=== PATIENT | female | born 1970 | race Caucasian/White ===

== ENCOUNTER 2019-12-17 10:18 | Observation (INO) | payer OTHER, SELFPAY ==
--- NOTE | 2019-12-16 18:39 | PCM.HPOB.BLA ---
- Problem List (1) Menorrhagia with irregular cycle Status: Acute History and Physical Date of Admission: 12/17/19 DATE OF SERVICE: December 11, 2019 ? PROBLEM:?menorrhagia ? DIAGNOSIS:?menorrhagia ? PAST SURGICAL HISTORY:? PAST SURGICAL HISTORY PAST SURGICAL HISTORY Procedure Laterality Date ? ANKLE LEFT OP SURGERY Left 2001 ? 2-3 screws placed ? DELIVERY ONLY N/A ? ? 1995 & 1998 ? PAST SURGICAL HISTORY OF N/A 2004 ? Kidney stone removal and stents placed ? REMOVAL GALLBLADDER N/A 2003 ? TUBAL LIGATION HX Bilateral 1998 ? During 1998 ? PAST MEDICAL HISTORY:? PAST MEDICAL HISTORY PAST MEDICAL HISTORY Diagnosis Date ? Asthma 1999 ? Uterine bleeding, dysfunctional 2016 ? SUBJECTIVE:?Still having heavy vaginal bleeding.?Had bleeding for?20 days in July, this mornth bleeding?for?16 days?straight. Cramping?and pelvic pain.? ? SOCIAL HISTORY:? SOCIAL HISTORY Social History ? Tobacco Use ? Smoking status: Never Smoker ? Smokeless tobacco: Never Used Substance Use Topics ? Alcohol use: No ? ? Frequency: Monthly or less ? ? Drinks per session: 1 or 2 ? Drug use: No ? Current Outpatient Medications on File Prior to Visit Medication Sig ? albuterol sulfate (PROAIR RESPICLICK) 90 mcg/actuation aepb Inhale 1 Inhaler as instructed four times daily as needed. ? beclomethasone (QVAR REDIHALER) 80 mcg/actuation inhaler Inhale 2 Puffs as instructed twice daily. (Patient not taking: Reported on 07/17/2019 ) No current facility-administered medications on file prior to visit.? ALLERGIES ALLERGIES Allergen Reactions ? Sulfa (Sulfonamide * Hives ? True Shimmer Chapst* Swelling Component Latest Ref Rng & Units 07/17/2019 WBC 3.70 - 11.00 k/uL 7.67 RBC 3.90 - 5.20 m/uL 4.89 Hemoglobin 11.5 - 15.5 g/dL 13.5 Hematocrit 36.0 - 46.0 % 43.2 MCV 80.0 - 100.0 fL 88.3 MCH 26.0 - 34.0 pG 27.6 MCHC 30.5 - 36.0 g/dL 31.3 RDW-CV 11.5 - 15.0 % 13.2 Platelet Count 150 - 400 k/uL 243 MPV 9.0 - 12.7 fL 10.0 Absolute nRBC <0.01 k/uL <0.01 TSH 0.270 - 4.200 uU/mL 1.690 EMB benign Colpo for abnormal pap with benign biopsy and negative ECC ? Gynecological Ultrasonography: Uterus: normal, anteverted. Size: Longitudinal 99 mm. Anterio- posterior 47 mm. Transverse 54 mm. Volume: 131.6 ml. Fibroids: Fibroid 1: Size: 19 mm x 17 mm x 19 mm. Type: anterior. Position: mid-uterus. Endometrium: endometrial cavity could not be seen clearly. Endometrium thickness total: 15.3 mm. Right Ovary: subvisualized. Left Ovary: normal. Visible. Morphology: normal morphology. Left Ovary size: 21 mm x 17 mm x 13 mm. Volume: 2.4 ml. Cul de Sac / Pouch of [place]: no free fluid visible. ? OBJECTIVE: ? VITALS:? BP 102/64 ? Pulse 66 ? Resp 18 ? Ht 5' 1 (1.549 m) ? Wt 187 lb 3.2 oz (84.9 kg) ? LMP 07/23/2019 ? BMI 35.37 kg/m? ? HEENT: ?Normocephalic, atraumatic, Mucus membranes moist without lesions. ? NECK: ???Soft and Supple. ?No adenopathy , thyromegaly or bruits. ? SKIN: No lesions. ? CHEST: Clear to auscultation. ?No wheezes or rales. ?Good air exchange. ? HEART: Regular rate and rhythm ?No S3 or S4. ?No gallops or rubs. ? BACK: Nontender with no CVA tenderness. ? ABDOMEN: Soft, non-tender, non-distended, no masses, no hepatosplenomegaly. ? LOWER EXTREMITIES: There was no pitting edema, no palpable cords and no skin changes. ? ? ? ASSESSMENT: ? PLAN:?Discussed options for medical management, as well as a uterine ablation. Patient declines all hormonal options, as well as a uterine ablation. Reviewed that the hysterectomy may not improve her pain, and could worsen the pain from adhesions. Discussed perimenopause. Discussed LAVH, BS, cysto.?The rationale for the proposed surgery was discussed in addition to risks, benefits, and alternatives. ?General pre- and post-operative care was reviewed. ?Questions were answered. ?After discussion, the patient indicated a desire to proceed with the planned surgery. ? Mansi Browne,?DO
[2019-12-17] VITALS (10 sets, daily range): BP systolic 97–118; BP diastolic 55–78; PULSE 51–80; RESP 12–18; TEMP 36.2–37.3; O2SAT 92–100; BMI 36.4; BMI 35.2
--- NOTE | 2019-12-17 | HYST_PTH ---
PATIENT: ABHIJIT NICOLE LOC: [facility] U#:[id number] AGE/SX: 49/F ROOM: [facility]315 RE12/17/[address]: Dr. Mansi Browne DO : 1970 BED: 1 DIS: 12/18/2019 SPEC #: [id number] RECD: 12/17/19 12:59 STATUS: MARIA DEL CARMEN EDU #: [id number] SHERIF: 12/17/19 00:[address]: Mansi Browne DEPT: SURGICAL PATHOLOGY RECD BY: Glynn Wilks Tissues: Uterus, NOS Procedures: Surgery Specimen Level V HEADER OPERATION: ERAS, laparoscopic hysterectomy, vaginal, salpingectomy, cyst PRE-OP DIAGNOSIS: Menorrhagia TISSUE SUBMITTED: Uterus and bilateral fallopian tubes MICROSCOPIC DIAGNOSIS Uterus and bilateral fallopian tubes, vaginal hysterectomy and bilateral salpingectomy: Cervix - mild chronic cystic cervicitis. Endometrium - proliferative endometrium with focal simple endometrial hyperplasia and morular metaplasia. Myometrium - focal superficial adenomyosis. Bilateral fallopian tubes - no pathologic diagnosis. Bilateral paratubal cysts. SJ:rg 12/18/19 COMMENT Case has been reviewed in consultation with Dr. Martines who concurs with the above diagnosis. IDC:AM MICROSCOPIC DESCRIPTION Slides are reviewed. GROSS DESCRIPTION Received in fixative is one container labeled with the patient's name and designated uterus and bilateral fallopian tubes. The specimen consists of a hysterectomy specimen consisting of uterus with cervix, attached right fallopian tube and detached left fallopian tube in two pieces. The uterus with cervix weighs 117 gm and measures 11 x 7 x 4 cm. The serosal surface is rosario, glistening. The ectocervical mucosa is unremarkable. The external os is circular in contour. The endocervical canal measures 4 cm in length and the endocervical mucosa is rosario, glistening without any mass lesion. Section of the cervix reveals multiple cysts filled with mucoid material. The triangular endometrial cavity measures 5 cm in length and up to 3.5 cm in width. The endometrium is rosario, glistening without any mass lesion and measures up to 0.2 cm in thickness. Sections of the uterine wall do not reveal any mass lesion and measures up to 2.5 cm in thickness. The right fallopian tube measures 5 cm in length and up to 0.7 cm in diameter. The fimbrial end is identified. It is interrupted in the middle consistent with previous tubal occlusion. Sections reveal unremarkable cut surfaces. A paratubal cyst is noted close to the fimbrial end measuring 1.5 cm in greatest dimension. The cyst is filled with clear fluid. The left fallopian tube is received in two pieces. The proximal portion measures 3.5 cm in length and 0.5 cm in diameter. The distal portion consisting of fimbrial end measures 1 x 1 x 0.2 cm. A small paratubal cyst is noted measuring 0.5 cm in greatest dimension. Section of the fallopian tube reveal unremarkable cut surfaces. Audio Installer sections are submitted in eight cassettes as follows: 1 - anterior cervix, 2 - posterior cervix, 3 & 4 - anterior uterine wall, 5 & 6 - posterior uterine wall, 7 - right fallopian tube and paratubal cyst, 8 - left fallopian tube and paratubal cyst. / DOROTHY:magui 12/17/19 TC:5 CPT: 32304
[2019-12-17 05:56] LABS: Bedside Glucose 72 mg/dL (70-110)
[2019-12-17] MEDS: Lactated Ringers 1,000 ML 40 ML IV ×3 (06:20→12:10)
[2019-12-17] MEDS: Acetaminophen 500 MG Tablet 1000 MG PO ×3 (06:21→18:50)
[2019-12-17] MEDS: Celecoxib 200 MG Capsule 400 MG PO (06:22)
[2019-12-17] MEDS: Gabapentin 600 MG Tablet PO (06:22)
[2019-12-17] MEDS: Phenazopyridine 95 MG Tablet 190 MG PO (06:23)
[2019-12-17] MEDS: Scopolamine 1mg/72hr Patch 1 PATCH TRANSDERM. (06:24)
[2019-12-17] MEDS: dexAMETHasone 10 MG/ML Vial 8 MG IV (06:27)
[2019-12-17 06:29] LABS: Hematocrit 40.5 % (37-47); Hemoglobin 12.8 g/dL (12.0-15.0); Mean Corp Hgb Conc 31.6 g/dL (32-36); Mean Corpuscular Hgb 27.3 pg (27.0-32.0); Mean Corpuscular Volume 86.4 fL (81-99); Mean Platelet Vol. 9.1 fl (6.2-12.0); Platelet Count 256 K/mm3 (150-450); RBC Distribution Width CV 13.4 % (11.6-14.6); RBC Distribution Width SD 41.7 fl (35.1-43.9); Red Blood Count 4.69 M/mm3 (4.2-5.4); White Blood Count 8.1 K/mm3 (4.4-11.0)
[2019-12-17] MEDS: Enoxaparin 40 MG/0.4 ML Syringe SC (06:30)
[2019-12-17 06:38] LABS: Prothrombin Time (Protime)PT. 12.7 SECONDS (11.7-14.9)
[2019-12-17 06:39] LABS: Anion Gap 5 (5-15); BUN 6 mg/dL (7-18); BUN/Creat Ratio 7.1 RATIO (10-20); Chloride 108 mmol/L (98-107); Creatinine, Serum 0.84 mg/dL (0.55-1.02); EST Glomerular Filtration Rate 77 mL/min (>60); Est Glom Filt Rate - Afr Amer 93 mL/min (>60); Estimated Creatinine Clearance 59.47 ml/min; Glucose 81 mg/dL (74-106); Magnesium 2.2 mg/dL (1.6-2.6); Sodium Level 140 mmol/L (136-145)
[2019-12-17] MEDS: Cefazolin 2 GM in 0.9% Normal Saline 100 ML IV (07:33)
[2019-12-17] MEDS: Bupivacaine Mpf 0.5% 30 ML VIAL (10:13)
--- NOTE | 2019-12-17 10:21 | PCM.OPRPT ---
Problem List (1) Menorrhagia with irregular cycle Status: Acute Report of Operation Date of Procedure: 12/17/19 Pre-Operative Diagnosis: menorrhagia Post-Operative Diagnosis: as above Surgery/Procedure Performed:: SARA, SUKI, cysto Description of Surgical Findings:: Normal appearing uterus, bilateral tubes, bilateral ovaries. A small amount of endometriosis was noted in the pelvis, mostly around the left pelvic wall. There were less than 5 endometriosis lesions noted. Dense blader adhesions. centrifugal drier operator: Anu Gallegos Type of Anesthesia:: General Special Medications: None Specimen's removed: Uterus, cervix, fallopian tubes Drains: White Estimated Blood Loss (mL): 300 Description of Procedure: Patient was taken to the operating room where general anesthesia was induced. Patient was placed in the dorsal lithotomy position in yellowfin stirrups. She was prepped and draped in the usual sterile fashion. White catheter was inserted into the bladder and attached to straight drain. A weighted speculum was placed in the vagina to expose the cervix. The anterior lip of the cervix was grasped with a single-tooth tenaculum. A uterine manipulator was placed. The weighted speculum was then removed. Gloves were changed and attention was turned to the abdominal portion of the case. All port sites were infiltrated with local. An infraumbilical incision was made and a 5 mm port was placed under direct visualization using the laparoscope. Once confirmed intraperitoneal, CO2 insufflation was initiated for a pneumoperitoneum. Visualization of the peritoneal cavity was performed and inspection did not reveal any injury from entry. Patient was placed in Trendelenburg. A left lateral 5 mm port was placed. A right lateral 5 mm port was placed. Beginning on the right side and distally along the length of the fallopian tube, the mesosalpinx was sequentially clamped, cauterized, and cut using the LigaSure device working alongside length of the tube and towards her cornea. Once the level of the cornea was reached attention was then turned to the other side. Same process was repeated on the left. The round ligament was then cut and ligated. Following this the anterior leaf the broad ligament was then taken down on the left side dissecting towards the peritoneal reflection at the base of the bladder and adjacent to the cervix. The same process was then repeated on the right side. Significant bladder adhesions were noted. Attention was then turned to the vaginal portion of the surgery. A weighted speculum was placed in the posterior aspect of the vagina and uterine manipulator was removed. The tenaculum was repositioned anterior and posterior. A circumferential incision was made at the cervicovaginal reflection using sharp dissection. This was undermined first anteriorly and the colpotomy was made. This was then repeated posteriorly in a similar fashion and a colpotomy was made. Beginning first on the patient's left side the uterosacral and cardinal ligament was clamped, divided, and suture ligated. Several bites were required to reach the previous dissection margin on the left side. The same process was then repeated on the patient's right side. At this point the specimen was completely freed. The uterus, cervix, bilateral tubes were removed and sent to pathology for review. The pedicles were inspected and hemostasis was confirmed. A Jiménez's culdoplasty was performed. Good hemostasis was still noted. Several [id number] sutures then placed across the vaginal cuff to close it. Once these had been tied off and sutures trimmed, attention was turned back to the abdominal portion of the case. All instruments were removed from the vagina at this time. Then using the laparoscopic irrigation device, the abdomen was carefully irrigated and inspected to ensure hemostasis. Xiomara was placed over the pedicles. The entire abdomen was inspected and the water was suctioned and instruments were removed. The ports were then removed under direct visualization. Incisions were closed with Monocryl suture. Patient tolerated procedure well. All sponge, instrument, sharp counts were correct. The patient was taken to recovery in stable condition. Grafts/Implants Used: None - Complications None - Admit VTE Documentation VTE Present on Admission: No VTE Mechan Device Prophylaxis: SCD's
[2019-12-17] MEDS: Ketorolac 30 MG/ML Syringe IV ×2 (12:20→18:50)
--- NOTE | 2019-12-17 16:24 | NURSING ---
up to chair at this time. Tolerated dangling at edge of bed. This nurse emptied foy bag for 700cc clr yelow/orange urine.
[2019-12-17] MEDS: Docusate Sodium 100 MG Capsule PO (21:09)
[2019-12-18] MEDS: Acetaminophen 500 MG Tablet 1000 MG PO ×2 (00:17→06:39)
[2019-12-18] MEDS: Ketorolac 30 MG/ML Syringe IV ×3 (00:18→12:06)
[2019-12-18 01:22] VITALS: BP 99/49; PULSE 80; RESP 18; TEMP 36.8; O2SAT 93
[2019-12-18 05:51] VITALS: BP 96/52; PULSE 73; RESP 18; TEMP 36.8; O2SAT 92
[2019-12-18 06:00] LABS: Hematocrit 31.5 % (37-47); Hemoglobin 9.7 g/dL (12.0-15.0); Mean Corp Hgb Conc 30.8 g/dL (32-36); Mean Corpuscular Hgb 27.2 pg (27.0-32.0); Mean Corpuscular Volume 88.2 fL (81-99); Mean Platelet Vol. 9.3 fl (6.2-12.0); Platelet Count 237 K/mm3 (150-450); RBC Distribution Width CV 13.8 % (11.6-14.6); RBC Distribution Width SD 44.4 fl (35.1-43.9); Red Blood Count 3.57 M/mm3 (4.2-5.4); White Blood Count 13.4 K/mm3 (4.4-11.0)
--- NOTE | 2019-12-18 07:53 | PN.OBGYN_ITS ---
Subjective: Well this morning. Pain is well controlled. She is ambulated without lightheadedness or dizziness. Tolerating regular diet without nausea or vomi ting. She denies chest pain, shortness of breath, leg pain. No heavy vaginal bleeding. She feels ready to go home today. - Physical Exam Vitals/I&O's: Vital Signs Temp Pulse Resp BP Pulse Ox 98.2 F 73 18 96/52 L 92 12/18/19 05:51 12/18/19 05:51 12/18/19 05:51 12/18/19 05:51 12/18/19 05:51 Oxygen Flow Rate (L/min) 6 Oxygen Delivery Method Room Air Weight: 186 lb 0.957 oz Body Mass Index (BMI) 35.2 Intake and Output for Last 24 Hours 12/16/19 12/17/19 12/18/19 23:59 23:59 23:59 Intake Total 3215 / 4265 1100 / 1100 Output Total 750 / 1900 1500 / 1500 Balance 2465 / 2365 -400 / -400 General: Alert, No apparent distress HEENT: Atraumatic Abdomen: Soft, Non Tender, Non-Distended Extremities: No edema, No Calf Tenderness Skin: No rashes Neurological: Neuro grossly intact Psych/Mental Status: Normal Affect, Appropriate Laboratory Results 12/18/19 05:40: WBC 13.4 H, RBC 3.57 L, Hgb 9.7 L, Hct 31.5 L, MCV 88.2, MCH 27.2, MCHC 30.8 L, RDW Std Deviation 44.4 H, RDW Coeff of Awa 13.8, Plt Count 237, MPV 9.3 Current Medications Acetaminophen (Tylenol) 1,000 mg PO Q6 [facility] Last Admin: 12/18/19 06:39 Dose: 1,000 mg Documented by: Docusate Sodium (Colace) 100 mg PO BID [facility] Last Admin: 12/17/19 21:09 Dose: 100 mg Documented by: Enoxaparin Sodium (Lovenox) 40 mg SC DAILY [facility] Lactated Ringer's () 1,000 mls @ 40 mls/hr IV .Q25H [facility] Stop: 12/18/19 11:03 Last Admin: 12/17/19 12:10 Dose: 40 mls/hr Documented by: Sodium Chloride () 250 mls @ 15 mls/hr IV .[id number] PRN PRN Reason: Saline Flush Ketorolac Tromethamine (Toradol (Bkc)) 30 mg IV Q6H [facility] Stop: 12/18/19 19:01 Last Admin: 12/18/19 06:40 Dose: 30 mg Documented by: Magnesium Oxide (Mag-Ox 400) 400 mg PO DAILY PRN PRN PRN Reason: Constipation Nutritional Formula (Lactose Free) (Ensure Enlive) 120 ml PO TIDCM [facility] Ondansetron HCl (Zofran Odt) 4 mg PO Q6H PRN PRN PRN Reason: NAUSEA Oxycodone HCl (Oxyir) 5 - 10 mg PO Q4H PRN PRN PRN Reason: Pain Score 4-10/10 Sodium Chloride () 10 - 40 ml IV UD PRN PRN Reason: SALINE FLUSH Medical Necessity - Tobacco Use Smoking Status: Never smoker Tobacco Use: Non-smoker Assessment/Plan All Active Problems (Last Updated 03/13/18 @ 17:35 by Shantel Nicole) Menorrhagia with irregular cycle (Acute) Cellulitis and abscess of face (Acute) Is postoperative day 1 from a laparoscopic assisted vaginal hysterectomy, bilateral salpingectomy, cystoscopy. She is doing well this morning. Hemodynamically stable. CBC reviewed. Encourage ambulation today and White to be removed. Discharge order placed and discharge instructions reviewed. To be discharged after lunch.
--- NOTE | 2019-12-18 07:58 | PCM.DC ---
You will use the following diet at home:: No restrictions, Regular Discharge Activity: May not drive while taking narcotic pain medications., May Shower May resume sexual activity in: 6-8 weeks Ice area for (Minutes): 15 Weight Bearing Status: Weight bearing as tolerated Lifting Restrictions: No lifting greater than 10 lbs Call your doctor if your incision/area has: Sudden Increased Bleeding, Increased Pain/ Swelling, Increased Redness, Foul Smelling Discharge, Swelling at the incision site Call your doctor if you observe: Fever of 101 or Higher, Inability to urinate, Inability to have a bowel movement, Using more than one pad per hour, Shortness of breath, Dizziness, Fainting spells, Chest pain, Increased palpitations (irregular heartbeat), Calf discomfort, Uncontrolled pain, - - Heavy vaginal bleeding, vaginal discharge Suture Line Care: Avoid Pulling/Pushing, Avoid Pinching/Bending Cleanse incision/area with: Soap & Water Allergies/Adverse Reactions: Allergies Sulfa (Sulfonamide Antibiotics) Allergy (Verified 12/17/19 05:39) Rash Medications to take at Discharge ibuprofen 200 mg capsule 200 mg PO TID-QID PRN 03/13/18 Albuterol IH (ProAir) [Proair Hfa (SP)Vent Pts] 1 puff INHALATION Q4H PRN PRN 12/10/19 Cetirizine HCl [Zyrtec] 10 mg PO PRN PRN 12/10/19 Docusate Sodium [Colace] 100 mg PO BID PRN PRN #60 cap 12/18/19 Ferrous Sulfate 325 mg PO DAILY #60 tab 12/18/19 Ibuprofen [Motrin] 800 mg PO TID PRN PRN #30 tab 12/18/19 Oxycodone HCl/Acetaminophen [Percocet 5/325] 1 tablet PO Q6H PRN PRN 7 Days #20 tablet 12/18/19 The following prescriptions were given: Docusate Sodium [Colace] 100 mg PO BID PRN PRN #60 cap PRN Reason: Constipation Transmission Status: Pending to [facility] Ferrous Sulfate 325 mg PO DAILY #60 tab Transmission Status: Pending to [facility] Ibuprofen [Motrin] 800 mg PO TID PRN PRN #30 tab PRN Reason: Pain Score 1-10/10 Transmission Status: Pending to [facility] Oxycodone HCl/Acetaminophen [Percocet 5/325] 1 tablet PO Q6H PRN PRN 7 Days #20 tablet PRN Reason: Pain Score 6-1010 Transmission Status: Sent to [facility] Primary Care Physician: KIRTI FELIPE [Other] Test Results: Test results from this visit will be discussed in further detail at your follow-up appointment, if applicable. Please Follow Up With: Mansi Browne DO When: 1-2 weeks and 6 weeks
[2019-12-18 08:13] VITALS: O2SAT 93
[2019-12-18 09:20] VITALS: BP 95/62; PULSE 65; RESP 18; TEMP 36.6; O2SAT 98
[2019-12-18] MEDS: Enoxaparin 40 MG/0.4 ML Syringe SC (10:31)
[2019-12-18] MEDS: Docusate Sodium 100 MG Capsule PO (10:31)
[2019-12-18] MEDS: 0.9% Saline Lock 10 ML Syringe IV (12:06)
--- NOTE | 2019-12-18 12:19 | PHA.DC.MC ---
Pharmacy Service has performed discharge medication reconciliation and counseling for this patient. 1. DOCUSATE 100MG PO BID CONSTIPATION 2. FERROUS SULFATE 325MG PO ONCE DAILY 3. OXYCODONE/ACETAMINOPHEN 5/325MG PO Q6H PRN PAIN 6-04/02 X 7 DAYS The patient's discharge medication list was reviewed for discrepancies and discrepancies were resolved. Instructed patient not to take ibuprofen 200mg while on 800mg dose. Home Medications ibuprofen 200 mg capsule 200 mg PO TID-QID PRN 03/13/18 Albuterol IH (ProAir) [Proair Hfa (SP)Vent Pts] 1 puff INHALATION Q4H PRN PRN 12/10/19 Cetirizine HCl [Zyrtec] 10 mg PO PRN PRN 12/10/19 Docusate Sodium [Colace] 100 mg PO BID PRN PRN #60 cap 12/18/19 Ferrous Sulfate 325 mg PO DAILY #60 tab 12/18/19 Ibuprofen [Motrin] 800 mg PO TID PRN PRN #30 tab 12/18/19 Oxycodone HCl/Acetaminophen [Percocet 5/325] 1 tab PO Q6H PRN PRN 7 Days #20 tab 12/18/19 The patient was counseled on the following discharge medications and changes in medications for homegoing were reviewed. The Reason for Use, instructions for use, and potential side effects were reviewed for all new medications. The patient's questions regarding all of their medications were answered. The patient was able to verbally demonstrate an understanding of their discharge medications.
== END 2019-12-18 12:29 | disposition home or self-care (01) ==
LOC: SDC 10:25 → MS3 12-18 07:23
PROVIDERS: Anesthesiology; Admitting Provider Obstetrics & Gynecology; Referring Provider Obstetrics & Gynecology; Visit Provider Obstetrics & Gynecology
PROC: 0UT9FZZ Resection of Uterus, Via Natural or Artificial Opening With Percutaneous Endoscopic Assistance (ICD-10-PCS; CPT 58552; principal; 2019-12-17 07:05)
DX: N92.1 Excessive and frequent menstruation with irregular cycle (principal); N72 Inflammatory disease of cervix uteri; N83.8 Other noninflammatory disorders of ovary, fallopian tube and broad ligament; N85.01 Benign endometrial hyperplasia; D25.9 Leiomyoma of uterus, unspecified; K21.9 Gastro-esophageal reflux disease without esophagitis; J45.909 Unspecified asthma, uncomplicated
CPT/HCPCS: 58552; 36415; 80048; 82962; 83735; 85027; 85610; 86850; 86900; 86901; 87635; 88307; 96372; 96374; 96376; 99218; 99251; G2023; J7120; A4216; G0378; G0379; G0463; J2405; J3475; U0003

== ENCOUNTER 2025-06-20 09:24 | Emergency (ER) | payer BC, SELFPAY ==
[2025-06-20 09:24] VITALS: BP 135/82; PULSE 97; RESP 16; TEMP 36.8; O2SAT 100; BMI 35.2
--- NOTE | 2025-06-20 09:35 | CT_ITS ---
PROCEDURE: CTA CHEST W/WO CONTRAST 06/20/2025 REASON FOR EXAM: RIGHT CHEST PAIN PULMONARY EMBOLISM TECHNIQUE: Procedure Code: [id number] Modality: CT Procedure: CTA CHEST W/WO CONTRAST Multidetector CT angiography of the chest with intravenous contrast including multiplanar and post-processed maximum intensity projection (MIP) were generated and interpreted. CONTRAST: Isovue 370 VOLUME: 100 mL One or more dose reduction techniques were used (e.g., Automated exposure control, adjustment of the mA and/or kV according to patient size, use of iterative reconstruction technique). RADIATION DOSE SUMMARY: DLP: 420.71 mGycm COMPARISON: None. FINDINGS: Opacification of the pulmonary arterial tree is adequate. Pulmonary artery and thoracic vessels: There are no filling defects in the central pulmonary arteries. No evidence of thoracic aortic dissection. The main pulmonary artery and thoracic aorta are normal in caliber. Pulmonary parenchyma: No focal lung consolidation. Mild dependent atelectasis. Airways: The central airways are patent. Pleural space: No pneumothorax or pleural effusion. Heart and pericardium: The heart is normal in size. No pericardial effusion. Evaluation of coronary artery calcifications is limited. Mediastinum and ronny: Unremarkable. Osseous structures: No aggressive osseous lesion. Degenerative changes in the thoracic spine. Upper visualized abdomen: Unremarkable. CT/CTA Chest W/WO Contrast IMPRESSION: 1. No evidence of pulmonary embolism. 2. No thoracic aortic dissection. 3. No focal lung consolidation. Reading Location: [id number]
--- NOTE | 2025-06-20 09:36 | EDS_ITS ---
HPI History of Present Illness Chief Complaint: Chest Other Informant: patient and spouse/S.O. Narrative Narrative: 55-year-old female presenting to the emergency room with a chief complaint of right chest pain. Patient states around Thanksgiving she had an asthma flare that was associated with a tremendous amount of coughing and developed pain along the right mid to lower lateral ribs. She states that it felt like a pulled muscle and has been continuous since then. She states that last night her and her went out to dinner ate [place] and played [place]. She states that the pain was very manageable. However this morning the pain is very sharp and stabbing. It is worse with movements. She denies any recent dyspnea. She has been able to lay flat at night to sleep usually on her side. She denies any DVT PE risk factors or history of thromboembolism. No history of effusion or malignancy. She states that she only takes albuterol as a prescription medicine. She has not been taking acetaminophen or ibuprofen on a regular basis to control her symptoms. She states now she feels a swelling in the area of the pain. No rash. She states she has had prior kidney stones and this feels different. [facility] Medical History Physical exam, pre-employment Asthma history of broken ankle Home Medications ?Medication ?Instructions ?Recorded ?Last Taken ?Type ibuprofen 200 mg capsule 200 mg PO TID-QID PRN Pain O r Fever 03/13/18 Unknown History albuterol sulfate 90 mcg/actuation 1 puff inhalation Q 4H PRN PRN 12/10/19 Unknown History aerosol inhaler Wheezing cetirizine 10 mg tablet 10 mg PO PRN PRN Allergies 0 12/10/19 Unknown History docusate sodium 100 mg capsule 100 mg PO BID PRN PRN C onstipation 12/18/19 Unknown Rx #60 caps ferrous sulfate 325 mg (65 mg 325 mg PO DAILY #60 tabs 12/18/19 Unknown Rx iron) tablet ibuprofen 800 mg tablet 800 mg PO TID PRN PRN Pain S core 12/18/19 Unknown Rx -04/02 #30 tabs ibuprofen 600 mg tablet 600 mg PO Q6H PRN PRN pain # 20 06/20/25 Unknown Rx TABLETS oxycodone-acetaminophen 5 mg-325 1 tab PO Q6H PRN pain 3 days #12 06/20/25 Unknown Rx mg tablet (Percocet) tabs Allergy/AdvReac Type Severity Reaction Status Date / Time Sulfa (Sulfonamide Allergy Rash Verified 06/20/25 09:26 Antibiotics) Family History Mother Multiple sclerosis Surgical History History of cholecystectomy History of lithotripsy History of delivery Social History Smoking Status: Never smoker alcohol intake: never ROS ROS ED Constitutional Constitutional ED: Denies chills, fever(s), sweats or weight loss Eyes Eyes: Denies change in vision or diplopia ENT ENT ED: Denies ear pain, rhinorrhea or sore throat Cardiovascular Cardiovascular: Reports as per HPI and chest pain; Denies orthopnea, palpitations or racing heartbeat Respiratory/Chest Respiratory/Chest: Denies cough, dyspnea or orthopnea Gastrointestinal Gastrointestinal: Denies abdominal pain, constipation, diarrhea, nausea or vomiting Genitourinary Genitourinary ED: Denies dysuria, hematuria or urinary frequency Musculoskeletal Musculoskeletal: Denies arthralgias, back pain or myalgias Integumentary Denies abscess or rash Neurologic Neurologic: Denies headache(s), paresthesias or weakness Psychiatric Psychiatric: Denies anxiety, depression, suicidal ideation or suicidal thoughts Endocrine Endocrinology: Denies polydipsia, polyphagia or polyuria Allergic/Immunologic Allergic/Immunologic ED: Denies mouth swelling, tongue swelling or urticaria EXAM Physical Exam Const Vital Signs: 06/20/25 09:24 06/20/25 09:30 Temperature 98.2 F Temperature Source Oral Pulse Rate 97 Respiratory Rate 16 Respiratory Effort Normal Non-Labored Blood Pressure 135/82 H Blood Pressure Mean 99 Pulse Ox 100 Oxygen Delivery Method Room Air Positive well nourished and well developed General Appearance ED: well developed HEENT Reports normocephalic, head/scalp atraumatic and moist mucous membranes Eyes PERRL and EOMs intact bilaterally Neck no lymphadenopathy, supple and no JVD Chest Wall Chest Narrative: Tenderness to palpation along the right mid axillary mid to lower ribs. I do not appreciate any rash. No ecchymosis is noted. There is no subcutaneous emphysema or crepitance felt. There appears to be some mild subcutaneous swelling in the area that the patient is pointing to. Resp normal respiratory effort and clear to auscultation bilaterally Cardio regular rate, regular rhythm and no murmurs GI normal to inspection, nondistended, normoactive bowel sounds and non-tender Palpation: soft Back/Spine no CVA tenderness and normal ROM Extremity normal to inspection General Extremety ED: Negative for edema General Extremity: Negative for edema Neuro oriented x3 and CN's II-XII intact bilaterally Sensorium / Orientation: alert Motor Exam: strength 5/5 throughout Psych Mood & Affect: tearful; Negative for depressed Skin no rashes or lesions noted and no wounds MDM MDM MDM Narrative Medical decision making narrative: Differential diagnosis includes but not limited to rib fracture seroma pleural effusion pulmonary embolism pneumonia pneumothorax chest wall strain Basic blood work is obtained and negative. Glucose noted to be 102. Normal white count normal hemoglobin 14.5 platelet count 247. CTA of the chest demonstrates no pulmonary embolism effusion or infiltrate. I do not see an obvious rib fracture. I do wonder if the patient has some cartilaginous separation versus inflammation. Patient received a dose of Toradol as well as oxycodone. I will discharge her home on ibuprofen and Percocet. Recommend PCP follow-up. Splinting techniques discussed with patient. Avoidance of strenuous activity. History & Record Review Discussion w/independent historian: Patient and Significant other Lab Data Attestation: I reviewed the patient's lab results. Labs: Laboratory Results - last 24 hr 06/20/25 09:50 WBC 6.4 RBC 4.85 Hgb 14.8 Hct 42.9 MCV 88.5 MCH 30.5 MCHC 34.5 RDW Std Deviation 40.4 RDW Coeff of Awa 12.4 Plt Count 247 MPV 9.4 Immature Gran % (Auto) 0.300 Neut % (Auto) 56.5 Lymph % (Auto) 27.0 [place] % (Auto) 6.2 Eos % (Auto) 8.9 H Baso % (Auto) 1.1 H Absolute Neuts (auto) 3.6 Absolute Lymphs (auto) 1.73 Nucleated RBC % 0 Sodium 138 Potassium 3.9 Chloride 102 Carbon Dioxide 25.0 Anion Gap 11 BUN 6 Creatinine 0.83 Estim Creat Clear Calc 74.27 Est GFR (MDRD) Non-Af 84 BUN/Creatinine Ratio 7.3 L Glucose 102 H Calcium 9.4 Total Bilirubin 0.39 AST 18 ALT 22 Alkaline Phosphatase 74 Total Protein 7.3 Albumin 4.4 Globulin 2.9 Albumin/Globulin Ratio 1.5 Radiography Diagnostic Testing: Clinical Impression(s) from Imaging Studies Chest CTA 06/20/25 09:35 IMPRESSION: 1. No evidence of pulmonary embolism. 2. No thoracic aortic dissection. 3. No focal lung consolidation. Reading Location: [facility] Discharge Plan Triage Chief Complaint: Chest Other ED Provider: Melecio Gerber Dx/Rx/DC Orders Clinical Impression: Acute chest wall pain Instructions: ED Chest Wall Pain, Costochondritis, ED Strain Chest Wall Prescriptions: New ibuprofen 600 mg tablet 600 mg PO Q6H PRN PRN (Reason: pain) Qty: 20 0RF oxycodone-acetaminophen [Percocet] 5-325 mg tablet 1 tab PO Q6H PRN (Reason: pain) 3 Days Qty: 12 0RF No Action ibuprofen 200 mg capsule 200 mg PO TID-QID PRN (Reason: Pain Or Fever) cetirizine 10 MG tablet 10 mg PO PRN PRN (Reason: Allergies) albuterol sulfate 1 PUFF inhaler 1 puff inhalation Q4H PRN PRN (Reason: Wheezing) ibuprofen 800 MG tablet 800 mg PO TID PRN PRN (Reason: Pain Score 1-10/10) Qty: 30 0RF ferrous sulfate 325 MG tablet 325 mg PO DAILY Qty: 60 0RF docusate sodium 100 MG capsule 100 mg PO BID PRN PRN (Reason: Constipation) Qty: 60 0RF Primary Care Provider: Melecio Horan NP Referrals: NOT,DEFINED [Non-Staff, None] Activity Restrictions/Additional Instructions: Please follow-up with your primary care doctor in 1 week Print Language: Citizen Of [place] Disposition Disposition: Home, Self Care
[2025-06-20] MEDS: Ketorolac 30 MG/ML Syringe IV (09:51)
[2025-06-20 09:59] LABS: Hematocrit 42.9 % (37-47); Hemoglobin 14.8 g/dL (12.0-15.0); Immature Granulocytes Count 0.020 X10^3/uL (0.0-0.0); Mean Corp Hgb Conc 34.5 g/dL (32-36); Mean Corpuscular Volume 88.5 fL (81-99); Mean Platelet Vol. 9.4 fl (6.2-12.0); NRBC Flagged by Analyzer 0 % (0-5); Platelet Count 247 K/mm3 (150-450); RBC Distribution Width CV 12.4 % (11.6-14.6); RBC Distribution Width SD 40.4 fl (35.1-43.9); Red Blood Count 4.85 M/mm3 (4.2-5.4); White Blood Count 6.4 K/mm3 (4.4-11.0)
[2025-06-20 10:18] LABS: AST(SGOT) 18 U/L (<=31); Alanine Aminotransfer ALT/SGPT 22 U/L (<=34); Albumin, Serum 4.4 g/dL (3.5-5.0); Alkaline Phosphatase 74 U/L (35-104); Anion Gap 11 (7-18); BUN 6 mg/dL (4-19); BUN/Creat Ratio 7.3 RATIO (10-20); Calcium,Total 9.4 mg/dL (7.6-11.0); Carbon Dioxide 25.0 mmol/L (20.0-29.0); Chloride 102 mmol/L (96-106); Estimated Creatinine Clearance 74.27 ml/min (50-250); Globulin 2.9 g/dL (2.2-4.2); Glucose 102 mg/dL (70-99); Potassium 3.9 mmol/L (3.5-5.1)
--- OUTSIDE RECORDS SUMMARY | 2025-06-20 10:34 | XMS RPT_ITS | CCD ---
Author Organization [facility] Care Team Providers Care Basic Acoustic Analyst Name Role Phone Marline DILLARD.NUZHAT MARTELL Daniel Primary Care Provider Oscar Ruiz Attending Unavailable Marline DILLARD.NUZHAT MARTELL Daniel Primary Care Provider MELECIO FELIPE Primary Care Unavailable Allergies Allergy Classification Reported Allergen(s) Allergy Type Date of Onset Reaction(s) Facility (3 sources) Sulfonamides (Antibiotic); Translations: [SULFA (SULFONAMIDE ANTIBIOTICS)] Propensity to adverse reactions 6 [facility] Work Phone: (1 source) Sulfonamides (Antibiotic) Drug allergy (disorder) 0 [facility] Repository Medications Current Medications Medication Drug Class(es) Dates Sig (Normalized) Sig (Original) albuterol 0.83 mg/ml inhalation solution (6 sources) beta2-Adrenergic Agonist Start: 09-19-2024 take 2.5 mg by inhalation every four hours as needed albuterol (PROVENTIL) 2.5 mg /3 mL (0.083 %) nebulizer solution Use 3 mL via nebulizer every 4 hours as needed for wheezing/shortnes s of breath. Use over 5-15minutes. 75 mL 09/19/2024 Active Start: 09-19-2024 take 2 puff(s) by in halation every six hours as needed for wheezing albuterol HFA (PROVENTIL HFA, VENTOLIN HFA) 90 mcg/actuation inhaler Inhale 2 Puffs as instructed every 6 hours as needed for wheezing/shortness of breath. 8 g 1 09/19/2024 Active Start: 08-14-2021 End: 08-14-2022 take 2 puff(s) by inhalation four times daily as needed for wheezing ProAir RespiClick 90 mcg/actuation breath activated (albuterol sulfate) Indications: Mild intermittent asthma with acute exacerbation (HCC) , Cough Inhale 2 Puffs as instructed four times daily as needed (For Wheezing or Shortness of breath). 1 Each 4 08/14/2021 Active Start: 04-04-2020 albuterol (PRO VENTIL) 2.5 mg /3 mL (0.083 %) nebulizer solution Indications: Mild intermittent asthma with acute exacerbation (HCC) Use 3 mL via nebulizer every 6 hours as needed. 1 vial contains 3 ml. 100 Vial 04/04/2020 Active Comment on above: Inhale 2 Puffs as in structed four times daily as needed (For Wheezing or Shortness of breath). Use 3 mL via nebuliz er every 6 hours as needed. 1 vial contains 3 ml. breath-actuated 120 actuat beclomethasone dipropionate 0.08 mg/actuat metered dose inhaler (2 sources) Corticosteroid Start: take 2 puff(s) by inhalation twice daily beclomethasone (QVAR REDIHALER) 80 mcg/actuation inhaler Indications: Mild intermittent asthma with acute exacerbation (HCC) Inhale 2 Puffs as instructed twice daily. 1 Inhaler 04/04/2020 Active Comment on above: Inhale 2 Puffs as in structed twice daily. doxycycline hyclate 100 mg oral tablet (1 source) Tetracycline-class Drug Start: End: take 1 tablet by mouth twice daily doxycycline (VIBRA-TABS) 100 mg tablet Take 1 tablet by mouth two times a day for 7 days. 14 tablet 09/19/2024 09/26/2024 Active Inhalational Spacing Device (1 source) Start: End: Inhalational Spacing Device 1 Device one time only for 1 dose. 1 Each 09/19/2024 09/19/2024 Active predniSONE 20 mg oral tablet (1 source) Start: End: take 2 tablets by mouth once daily predniSONE (DELTASONE) 20 mg tablet Take 2 tablets by mouth once daily for 5 days. 10 tablet 09/19/2024 09/24/2024 Active Problems Active Problems Problem Classification Problem Date Documented Da te Episodic/Chronic Asthma (4 sources) Asthma; Translations: [Unspecified asthma, uncomplicated] Onset: 11-09-2005 07-24-2019 Chronic Other female genital disorders (2 sources) Abnormal uterine bleeding; Translations: [Other specified abnormal uterine and vaginal bleeding] Onset: 06-24-2016 07-24-2019 Chronic Other nutritional; endocrine; and metabolic disorders (2 sources) Obese class II; Translations: [Obesity, unspecified] Onset: 07-24-2019 07-24-2019 Chronic Other screening for suspected conditions (not mental disorders or infectious disease) (1 source) Patient encounter status; Translations: [Encounter for screening mammogram for malignant neoplasm of breast] Episodic Other upper respiratory infections (1 source) Chronic sinusitis; Translations: [Chronic sinusitis, unspecified] 09-19-2024 Chronic Past or Other Problems Problem Classification Problem Date Documented Da te Episodic/Chronic Headache; including migraine (2 sources) Headache; Translations: [Headache] Onset: 03-14-2006 03-14-2006 Episodic Pneumonia (except that caused by tuberculosis or sexually transmitted disease) (2 sources) Infective pneumonia; Translations: [Pneumonia, unspecified organism] Onset: 03-09-2019 03-09-2019 Episodic Results Test Name Value Interpretation Reference Range Facil litilana BILLon 09-19-2024 CNOV Office Visit (UCWSTR ) RACHAEL NICOLE ([id number]) 1970 F Date Time Provider Department 09/19/24 8:15 AM HAIM [facility] During your visit today, we recorded the following information about you: Temperature Pulse Respiration Blood pressure 97.6 degrees 91/minute 18/minute 128/72 Weight 81.4 kg Haim Houston APRN.SPINNER CONTINUOUS 09/19/2024 8:30 AM Signed Subjective HPI Nontoxic-appearing 54-year-old female presents urgent care chief complaint asthma flareup. Duration of symptoms 8 days. Associated symptoms cough runny nose. Patient states initially she did have body aches chills sore throat headache. The symptoms improved. Cough is been staying persistent. Is waking her up at night. Has used a rescue inhaler this is helped some. Was initially on controlling medications has not been using these recently. Denies any chest pain or hemoptysis. Some shortness of breath with coughing. No pleuritic pain. No fevers. Past medical history prescription medications allergies reviewed. .Patient presents with: Asthma: Asthma flare-up x 8 days PAST MEDICAL HISTORY Diagnosis Date Asthma 1999 Endometriosis noted at time of hysterectomy - less than 5 lesions Uterine bleeding, dysfunctional 2017 PAST SURGICAL HISTORY Procedure Laterality Date ANKLE LEFT OP SURGERY Left 2001 2-3 screws placed DELIVERY ONLY N/A 1995 AND 1998 CHOLECYSTECTOMY N/A 2003 HYSTERECTOMY 12/17/2019 LAVH, BS, cysto - adenomyosis and simple hyperplasia PAST SURGICAL HISTORY OF N/A 2004 Kidney stone removal and stents placed TUBAL LIGATION HX Bilateral 1998 During 1998 ALLERGIES Sulfa (Sulfonamide Antibiotics) MEDICATIONS ProAir RespiClick 90 mcg/actuation breath activated (albuterol sulfate) Inhale 2 Puffs as instructed four times daily as needed (For Wheezing or Shortness of breath). beclomethasone (QVAR REDIHALER) 80 mcg/actuation inhaler Inhale 2 Puffs as instructed twice daily. albuterol (PROVENTIL) 2.5 mg /3 mL (0.083 %) nebulizer solution Use 3 mL via nebulizer every 6 hours as needed. 1 vial contains 3 ml. FAMILY HISTORY Problem Relation Age of Onset Multiple Sclerosis Mother Fibromyalgia Maternal Grandmother Diabetes Maternal Grandmother No Known Problems Maternal Grandfather Suicide / Suicidal Behaviors Half-sister Asthma Half-brother No Known Problems Half-brother No Known Problems Son Fibromyalgia Daughter Rheumatologic disease Daughter No Known Problems Daughter No Known Problems Daughter Social History Tobacco Use Smoking status: Never Smokeless tobacco: Never Vaping Use Vaping status: Never Used Substance Use Topics Alcohol use: No Drug use: No BP 128/72 Pulse 91 Temp 36.4 ?C (97.6 ?F) (Tympanic) Resp 18 Wt 81.4 kg (179 lb 7.3 oz) LMP 07/23/2019 SpO2 97% BMI 33.91 kg/m? Review of Systems Constitutional: Negative for chills, fever and malaise/fatigue. HENT: Positive for congestion and sinus pain. Negative for ear discharge, ear pain and sore throat. Eyes: Negative for blurred vision, pain, discharge and redness. Respiratory: Positive for cough and wheezing. Negative for hemoptysis, sputum production, shortness of breath and stridor. Cardiovascular: Negative for chest pain. Gastrointestinal: Negative for abdominal pain, diarrhea, nausea and vomiting. Musculoskeletal: Negative for myalgias. Skin: Negative for itching and rash. Neurological: Negative for dizziness and headaches. Objective Physical Exam Constitutional: General: She is not in acute distress. Appearance: She is not diaphoretic. HENT: Head: Normocephalic. Jaw: No trismus, tenderness, swelling or pain on movement. Nose: Congestion present. Mouth/Throat: Mouth: Mucous membranes are moist. Pharynx: Oropharynx is clear. Uvula midline. No pharyngeal swelling, oropharyngeal exudate, posterior oropharyngeal erythema or uvula swelling. Eyes: Conjunctiva/sclera: Conjunctivae normal. Pupils: Pupils are equal, round, and reactive to light. Cardiovascular: Rate and Rhythm: Normal rate and regular rhythm. Heart sounds: Normal heart sounds. Pulmonary: Effort: Pulmonary effort is normal. No tachypnea, accessory muscle usage or respiratory distress. Breath sounds: No stridor. Wheezing present. No rhonchi or rales. Abdominal: General: There is no distension. Palpations: Abdomen is soft. Tenderness: There is no abdominal tenderness. There is no guarding or rebound. Musculoskeletal: Cervical back: Normal range of motion and neck supple. No edema, erythema, rigidity or tenderness. No pain with movement. Normal range of motion. Lymphadenopathy: Cervical: No cervical adenopathy. Skin: General: Skin is warm and dry. Neurological: Mental Status: She is alert and oriented to person, place, and time. ASSESSMENT/PLAN: 1. Sinobronchitis - I (more content not included)... Normal [facility] Office Visit Reporton 2023 Office Visit Report [facility] [address] [place] [address] OFFICE VISIT Date of Service: 11/06/23 MR#: [id number] Acct: [id number] Patient: RACHAEL NICOLE Rep #: [id number] : 1970 Provider: KAVITA Morelos Age/Sex: 53/F [place] [facility] [place] [place]: Signed Intake Vital Signs 12/17/19 12:01 Height 5 ft 1 in Intake Visit Reasons: PE/NON DOT/DRUG/BAT/MIKO BRUSH Chief Complaint: excessive bleeding Allergies Sulfa (Sulfonamide Antibiotics) Allergy (Verified 12/17/19 05:39) Rash Office Procedures [facility] Billing Sheet Testing Breath Alcohol Test Pre-Employment: Yes Pre-Employment Drug Screen: Yes Pre-Employment PE: Yes 11/06/23 1241 Date Oscar WALLS Cosigner Signature: Date (if applicable) CC: Normal [facility] Urgent Care Visit Reporton 0 11-06-2023 Urgent Care Visit Report [facility] [address], [address] [place] [address] OFFICE VISIT Date of Service: 11/06/23 MR#: [id number] Acct: [id number] Name: RACHAEL NICOLE Rep #: [id number] : 1970 Provider: KAVITA Morelos Age/Sex: 53/F [place] [facility] [place] Status: Signed Intake Vital Signs 12/17/19 12:01 Height 5 ft 1 in Intake Visit Reasons: PE/NON DOT/PHYSICAL/MIKO BRUSH Chief Complaint: excessive bleeding Allergies Sulfa (Sulfonamide Antibiotics) Allergy (Verified 12/17/19 05:39) Rash [facility] Medical History (Updated 11/06/23 @ 12:43 by KAVITA Abraham) Physical exam, pre-employment Asthma history of broken ankle Surgical History (Updated 03/13/18 @ 17:35 by Shantel Nicole) History of cholecystectomy History of lithotripsy History of delivery Family History (Updated 03/13/18 @ 17:36 by Shantel Nicole) Mother Multiple sclerosis Social History (Updated 03/13/18 @ 17:38 by Oscar WALLS PA) Smoking Status: Never smoker alcohol intake: never HPI HPI Chief Complaint: excessive bleeding Details: RACHAEL NICOLE, is a 53 F who presents to the office today for Office Procedures Physical Exam Coding PE Coding Pre-employment PE: Yes Coding Level of Care Code No Charge Diagnoses Physical exam, pre-employment Z02.1 Assessment and Plan Assessment and Plan (1) Physical exam, pre-employment: Status: Acute 11/06/23 1243 Date Oscar WALLS Cosigner Signature: Date (if applicable) CC: Normal [facility] Vital Signs Date Time Vital Sign Value Performing Clinician Faci lity 09-19-2024 08:15-0400 Body mass index (BMI) [Ratio] 33.91 kg/m2 Haim Houston APRN.CNP Work Phone: [facility] 09-19-2024 08:15-0400 Body temperature 97.59 [degF] Haim Houston APRN.SPINNER CONTINUOUS Work Phone: [facility] 09-19-2024 08:15-0400 Body weight 81.4 kg Haim Houston APRN.SPINNER CONTINUOUS Work Phone: [facility] 09-19-2024 08:15-0400 Diastolic blood pressure 72 mm[Hg] Haim Houston APRN.SPINNER CONTINUOUS Work Phone: [facility] 09-19-2024 08:15-0400 Heart rate 91 /min Haim Houston APRN.SPINNER CONTINUOUS Work Phone: [facility] 09-19-2024 08:15-0400 Respiratory rate 18 /min Haimdivine Houston APRN.CNP Work Phone: [facility] 09-19-2024 08:15-0400 SaO2% (BldA) [Mass fraction] 97 % Haim Houston APRN.CNP Work Phone: [facility] 09-19-2024 08:15-0400 Systolic blood pressure 128 mm[Hg] Haim Houston APRN.CNP Work Phone: [facility] Encounters Encounter Date Encounter Type Care Provider Facility Start: 09-19-2024 End: 09-19-2024 ambulatory MELECIO FELIPE Facility:[facility] Start: 09-19-2024 End: 09-19-2024 Office outpatient new 20 minutes Haim Houston APRN.CNP Work Phone: [facility] Comment on above: Sinobronchitis (Prim charley Dx) Start: 11-06-2023 End: 11-06-2023 ambulatory Oscar WALLS [place] [place] Start: 12-20-2021 ambulatory Melecio LUGO RN.NUZHAT MARTELL Work Phone: [facility] [place] Procedures Date Procedure Procedure Detail Performing Clinician Start: 08-12-2019 Mammography Melecio davis APRN.NUZHAT MARTELL Work Phone: Start: 08-07-2019 Lipid 1996 panel - S tiffani or Plasma Haim Houston APRN.CNP Work Phone: Start: 07-22-2019 Adult depression scr eening assessment Melecio Felipe APRN.NUZHAT MARTELL Work Phone: Plan of Treatment Date Care Activity Detail Author Start: 08-07-2024 Lipid panel Lipid Screening [facility] Start: 08-07-2024 LIPID SCREEN LIPID SCREEN [facility] Start: 07-17-2024 HPV TESTING HPV TESTING [facility] Start: 07-17-2024 PAP TESTING PAP TESTING [facility] Start: 07-17-2024 Screening for malign ant neoplasm of cervix Cervical Cancer Screening [facility] Start: 02-23-2024 Covid-19 Vaccine ( season) Covid-19 Vaccine () [facility] Start: 02-23-2024 Influenza vaccination Influenza Vacc ine (#1) [facility] Start: 08-07-2022 DIABETES SCREEN [facility] Start: 08-07-2022 Diabetes Screening Diabetes Screenin g [facility] Start: 2022 Pneumococcal Vaccine : 50+ (1 of 1 - PCV) Pneumococcal Vaccine: 50+ (1 of 1 - PCV) [facility] Start: 2022 Shingrix Vaccine (1 of 2) Shingrix Vaccine (1 of 2) [facility] Start: 02-22-2022 Influenza vaccination INFLUENZ A (Season Ended) [facility] Start: 04-04-2021 ANNUAL PCP TEAM TRUCK TRAILER FINAL INSPECTOR ALEXY DISEASE VISIT ANNUAL PCP TEAM CHRONIC DISEASE VISIT [facility] Start: 08-12-2020 Mammography MAMMOGRAM [facility] Start: 08-12-2020 Screening for malign ant neoplasm of breast Mammogram Screening [facility] Start: 07-22-2020 Adult depression screening assessment DEPRESSION SCREENING [facility] Start: 2017 COLOGUARD (FIT-DNA) COLOGUARD (FIT-D NA) [facility] Start: 2017 Colonoscopy COLONOSCOPY [facility] Start: 2017 COLORECTAL CANCER SCREENING COLORECTAL CANCER SCREENING [facility] Start: [address] COLONOGRAPHY [facility] Start: 2017 FECAL OCCULT BLOOD FECAL OCCULT BLOO D [facility] Start: 2017 Screening for malign ant neoplasm of colon [facility] Start: 2017 SIGMOIDOSCOPY SIGMOIDOSCOPY [facility] Start: 1991 Hepatitis B Vaccine (1 of 3 - 19+ 3-dose series) Hepatitis B Vaccine (1 of 3 - 19+ 3-dose series) [facility] Start: 1991 Urine microalbumin profile [facility] Start: 1990 Anxiety Screening Anxiety Screening [facility] Start: 1990 Depression Screening Depression Scre ening [facility] Start: 1990 HEPATITIS C SCREENING HEPATITIS C [facility] Start: 1990 Hepatitis C screening Hepatitis C [facility] Start: 1990 HIV SCREENING HIV SCREENING [facility] Start: 1990 HIV screening HIV Screening [facility] Start: 1990 SPIROMETRY SPIROMETRY [facility] Start: 1978 PNEUMOCOCCAL (1 - PCV) PNEUMOCOCCAL (1 - PCV) [facility] Start: 1977 COVID-19 VACCINE (#1) COVID-19 VACCI NE (#1) [facility] End: 01-19-2023 Screening mammography bi 2-view breast inc cad EDEN SCREENING Radiology Routine Encounter for screening mammogram for breast cancer 1 Occurrences starting 12/20/2021 until 01/19/2023 [facility] Work Phone: Comment on above: 1 Occurrences starti ng 12/20/2021 until 01/19/2023 Payers Date Payer Category Payer Self-pay 2022 Blue [place] [employer] [facility] BLUE ACCE PPO [id number] 2022 Unknown [id number] 2019 Unknown MMO MMO [employer] [id number] 2019-Present [phone] [address] [place] [address] PPO [id number] Unknown [id number] Unknown [id number] Social History Date Type Detail Facility Start: 07-17-2017 Tobacco smoking status NHIS Never sm oked tobacco [facility] Start: 04-04-2020 End: 09-19-2024 Alcohol intake Current non-drinker of alcohol (finding) [facility] Start: 07-24-2019 End: 04-04-2020 History SDOH Alcohol Frequency 2 [facility] Start: 07-24-2019 End: 04-04-2020 History SDOH Alcohol Std Drinks 1 [facility] Start: 07-17-2019 History SDOH Social Connections Phone 5 [facility] Start: 07-17-2019 History SDOH Social Connections Living 3 [facility] Start: 07-22-2019 History SDOH Physica l Activity DPW 6 [facility] Start: 04-04-2020 History SDOH Financial 4 [facility] Start: 07-22-2019 Education 12 [facility] Start: 1970 Sex Assigned At Not on file [facility] Start: 07-17-2017 Tobacco use and exposure Smoke less tobacco non-user [facility] Start: 07-17-2019 End: 05-30-2020 History of Social function [facility] Start: 07-17-2019 End: 05-30-2020 Social connection and isolation panel [facility] Do you belong to any clubs or organizations such as gnosticism groups, unions, fraternal or athletic groups, or school groups? No [facility] Are you now , , , , never or living with a partner? [facility] How often to you hav e a drink containing alcohol? Monthly or less [facility] How many standard dr inks containing alcohol do you have on a typical day? 1 or 2 [facility] Frequency of Binge Drinking Not on file [facility] How hard is it for y ou to pay for the very basics like food, housing, medical care, and heating Not very hard [facility] Do you feel stress - tense, restless, nervous, or anxious, or unable to sleep at night because your mind is troubled all the time - these days [OSQ] Not at all [facility] (I/We) worried sun er (my/our) food would run out before (I/we) got money to buy more. Never true [facility] Functional Status Date Assessment Result Facility 08-09-2014 Are you deaf, or do you have serious difficulty hearing No 08/09/2014 3:12 PM Eli Forman MA [facility] 08-09-2014 Are you blind, or do you have serious difficulty seeing, even when wearing glasses No 08/09/2014 3:12 PM Eli Forman MA [facility] 08-09-2014 Do you have serious difficulty walking or climbing stairs No 08/09/2014 3:12 PM Eli Forman MA [facility] 08-09-2014 Do you have difficul ty dressing or bathing No 08/09/2014 3:12 PM Eli Forman MA [facility] 08-09-2014 Because of a physica l, mental, or emotional condition, do you have difficulty doing errands alone such as visiting a physician's office or shopping No 08/09/2014 3:12 PM Eli Forman MA [facility] Mental Status Date Assessment Result Facility 08-09-2014 Because of a physica l, mental, or emotional condition, do you have serious difficulty concentrating, remembering, or making decisions No 08/09/2014 3:12 PM Eli Forman MA [facility] Progress note 09-19-2024 Note Date & Type Note Facility 09-19-2024 Note HNO ID: [id number] Author: HAIM HOUSTON APRN.SPINNER CONTINUOUS Service: ? Author Type: Nurse Practitioner Type: Progress Notes Filed: 09/19/2024 08:30 Note Text: Subjective HPI Nontoxic-appearing 54-year-old female presents urgent care chief complaint asthma flareup. Duration of symptoms 8 days. Associated symptoms cough runny nose. Patient states initially she did have body aches chills sore throat headache. The symptoms improved. Cough is been staying persistent. Is waking her up at night. Has used a rescue inhaler this is helped some. Was initially on controlling medications has not been using these recently. Denies any chest pain or hemoptysis. Some shortness of breath with coughing. No pleuritic pain. No fevers. Past medical history prescription medications allergies reviewed. .Patient presents with: Asthma: Asthma flare-up x 8 days PAST MEDICAL HISTORY Diagnosis Date Asthma 1999 Endometriosis noted at time of hysterectomy - less than 5 lesions Uterine bleeding, dysfunctional 2017 PAST SURGICAL HISTORY Procedure Laterality Date ANKLE LEFT OP SURGERY Left 2001 2-3 screws placed DELIVERY ONLY N/A 1995 AND 1998 CHOLECYSTECTOMY N/A 2003 HYSTERECTOMY 12/17/2019 LAVH, BS, cysto - adenomyosis and simple hyperplasia PAST SURGICAL HISTORY OF N/A 2004 Kidney stone removal and stents placed TUBAL LIGATION HX Bilateral 1998 During 1998 ALLERGIES Sulfa (Sulfonamide Antibiotics) MEDICATIONS ProAir RespiClick 90 mcg/actuation breath activated (albuterol sulfate) Inhale 2 Puffs as instructed four times daily as needed (For Wheezing or Shortness of breath). beclomethasone (QVAR REDIHALER) 80 mcg/actuation inhaler Inhale 2 Puffs as instructed twice daily. albuterol (PROVENTIL) 2.5 mg /3 mL (0.083 %) nebulizer solution Use 3 mL via nebulizer every 6 hours as needed. 1 vial contains 3 ml. FAMILY HISTORY Problem Relation Age of Onset Multiple Sclerosis Mother Fibromyalgia Maternal Grandmother Diabetes Maternal Grandmother No Known Problems Maternal Grandfather Suicide / Suicidal Behaviors Half-sister Asthma Half-brother No Known Problems Half-brother No Known Problems Son Fibromyalgia Daughter Rheumatologic disease Daughter No Known Problems Daughter No Known Problems Daughter Social History Tobacco Use Smoking status: Never Smokeless tobacco: Never Vaping Use Vaping status: Never Used Substance Use Topics Alcohol use: No Drug use: No BP 128/72 Pulse 91 Temp 36.4 ?C (97.6 ?F) (Tympanic) Resp 18 Wt 81.4 kg (179 lb 7.3 oz) LMP 07/23/2019 SpO2 97% BMI 33.91 kg/m? Review of Systems Constitutional: Negative for chills, fever and malaise/fatigue. HENT: Positive for congestion and sinus pain. Negative for ear discharge, ear pain and sore throat. Eyes: Negative for blurred vision, pain, discharge and redness. Respiratory: Positive for cough and wheezing. Negative for hemoptysis, sputum production, shortness of breath and stridor. Cardiovascular: Negative for chest pain. Gastrointestinal: Negative for abdominal pain, diarrhea, nausea and vomiting. Musculoskeletal: Negative for myalgias. Skin: Negative for itching and rash. Neurological: Negative for dizziness and headaches. Objective Physical Exam Constitutional: General: She is not in acute distress. Appearance: She is not diaphoretic. HENT: Head: Normocephalic. Jaw: No trismus, tenderness, swelling or pain on movement. Nose: Congestion present. Mouth/Throat: Mouth: Mucous membranes are moist. Pharynx: Oropharynx is clear. Uvula midline. No pharyngeal swelling, oropharyngeal exudate, posterior oropharyngeal erythema or uvula swelling. Eyes: Conjunctiva/sclera: Conjunctivae normal. Pupils: Pupils are equal, round, and reactive to light. Cardiovascular: Rate and Rhythm: Normal rate and regular rhythm. Heart sounds: Normal heart sounds. Pulmonary: Effort: Pulmonary effort is normal. No tachypnea, accessory muscle usage or respiratory distress. Breath sounds: No stridor. Wheezing present. No rhonchi or rales. Abdominal: General: There is no distension. Palpations: Abdomen is soft. Tenderness: There is no abdominal tenderness. There is no guarding or rebound. Musculoskeletal: Cervical back: Normal range of motion and neck supple. No edema, erythema, rigidity or tenderness. No pain with movement. Normal range of motion. Lymphadenopathy: Cervical: No cervical adenopathy. Skin: General: Skin is warm and dry. Neurological: Mental Status: She is alert and oriented to person, place, and time. ASSESSMENT/PLAN: 1. Sinobronchitis - ICD9: 473.9, 490, ICD10: J32.9, J40 Diagnosed sinobronchitis. Placed on doxycycline and prednisone. Refills of nebulizing solution and albuterol sent. Encouraged to follow-up with PCP. Patient was educated on supportive therapies. Patient will follow up with primary care provider as needed. P (more content not included)... [facility] History of Present illness Narrative 09-19-2024 Haim Houston APRN.[facility] - 09/19/2024 8:18 AM EDT Note Date & Type Note Facility 09-19-2024 History of Presen t illness Narrative Subjective HPI Nontoxic-appearing 54-year-old female presents urgent care chief complaint asthma flareup. Duration of symptoms 8 days. Associated symptoms cough runny nose. Patient states initially she did have body aches chills sore throat headache. The symptoms improved. Cough is been staying persistent. Is waking her up at night. Has used a rescue inhaler this is helped some. Was initially on controlling medications has not been using these recently. Denies any chest pain or hemoptysis. Some shortness of breath with coughing. No pleuritic pain. No fevers. Past medical history prescription medications allergies reviewed. .Patient presents with: Asthma: Asthma flare-up x 8 days PAST MEDICAL HISTORY Diagnosis Date Asthma 1999 Endometriosis noted at time of hysterectomy - less than 5 lesions Uterine bleeding, dysfunctional 2017 PAST SURGICAL HISTORY Procedure Laterality Date ANKLE LEFT OP SURGERY Left 2001 2-3 screws placed DELIVERY ONLY N/A 1995 & 1998 CHOLECYSTECTOMY N/A 2003 HYSTERECTOMY 12/17/2019 LAVH, BS, cysto - adenomyosis and simple hyperplasia PAST SURGICAL HISTORY OF N/A 2004 Kidney stone removal and stents placed TUBAL LIGATION HX Bilateral 1998 During 1998 ALLERGIES Sulfa (Sulfonamide Antibiotics) MEDICATIONS ProAir RespiClick 90 mcg/actuation breath activated (albuterol sulfate) Inhale 2 Puffs as instructed four times daily as needed (For Wheezing or Shortness of breath). beclomethasone (QVAR REDIHALER) 80 mcg/actuation inhaler Inhale 2 Puffs as instructed twice daily. albuterol (PROVENTIL) 2.5 mg /3 mL (0.083 %) nebulizer solution Use 3 mL via nebulizer every 6 hours as needed. 1 vial contains 3 ml. FAMILY HISTORY Problem Relation Age of Onset Multiple Sclerosis Mother Fibromyalgia Maternal Grandmother Diabetes Maternal Grandmother No Known Problems Maternal Grandfather Suicide / Suicidal Behaviors Half-sister Asthma Half-brother No Known Problems Half-brother No Known Problems Son Fibromyalgia Daughter Rheumatologic disease Daughter No Known Problems Daughter No Known Problems Daughter Social History Tobacco Use Smoking status: Never Smokeless tobacco: Never Vaping Use Vaping status: Never Used Substance Use Topics Alcohol use: No Drug use: No BP 128/72 Pulse 91 Temp 36.4 C (97.6 F) (Tympanic) Resp 18 Wt 81.4 kg (179 lb 7.3 oz) LMP 07/23/2019 SpO2 97% BMI 33.91 kg/m Review of Systems Constitutional: Negative for chills, fever and malaise/fatigue. HENT: Positive for congestion and sinus pain. Negative for ear discharge, ear pain and sore throat. Eyes: Negative for blurred vision, pain, discharge and redness. Respiratory: Positive for cough and wheezing. Negative for hemoptysis, sputum production, shortness of breath and stridor. Cardiovascular: Negative for chest pain. Gastrointestinal: Negative for abdominal pain, diarrhea, nausea and vomiting. Musculoskeletal: Negative for myalgias. Skin: Negative for itching and rash. Neurological: Negative for dizziness and headaches. Objective Physical Exam Constitutional: General: She is not in acute distress. Appearance: She is not diaphoretic. HENT: Head: Normocephalic. Jaw: No trismus, tenderness, swelling or pain on movement. Nose: Congestion present. Mouth/Throat: Mouth: Mucous membranes are moist. Pharynx: Oropharynx is clear. Uvula midline. No pharyngeal swelling, oropharyngeal exudate, posterior oropharyngeal erythema or uvula swelling. Eyes: Conjunctiva/sclera: Conjunctivae normal. Pupils: Pupils are equal, round, and reactive to light. Cardiovascular: Rate and Rhythm: Normal rate and regular rhythm. Heart sounds: Normal heart sounds. Pulmonary: Effort: Pulmonary effort is normal. No tachypnea, accessory muscle usage or respiratory distress. Breath sounds: No stridor. Wheezing present. No rhonchi or rales. Abdominal: General: There is no distension. Palpations: Abdomen is soft. Tenderness: There is no abdominal tenderness. There is no guarding or rebound. Musculoskeletal: Cervical back: Normal range of motion and neck supple. No edema, erythema, rigidity or tenderness. No pain with movement. Normal range of motion. Lymphadenopathy: Cervical: No cervical adenopathy. Skin: General: Skin is warm and dry. Neurological: Mental Status: She is alert and oriented to person, place, and time. ASSESSMENT/PLAN: 1. Sinobronchitis - ICD9: 473.9, 490, ICD10: J32.9, J40 Diagnosed sinobronchitis. Placed on doxycycline and prednisone. Refills of nebulizing solution and albuterol sent. Encouraged to follow-up with PCP. Patient was educated on supportive therapies. Patient will follow up with primary care provider as needed. Patient was instructed to immediately proceed to emergency room for any new, worsening, or symptoms lasting longer than anticipated. The patient's clinical presentation is otherwise unremarkable at this time. Based on exam and clinical finding, the patient is stable for discharge. Plan of care was discussed with patient. Patient verbalizes understanding and agrees to plan of care. This note was generated using [employer] software. It may contain errors in wording, punctuation, or spelling. Haim Houston APRN.[facility] documented in this encounter [facility] Evaluation note Note Date & Type Note Facility Evaluation note Diagnosis Encounter for screening mammogram for breast cancer documented in this encounter [facility] Evaluation note Note Date & Type Note Facility Evaluation note Diagnosis Sinobronchitis- Primary Unspecified sinusitis (chronic) documented in this encounter [facility] Reason for referral (narrative) Diagnostic Procedure Only (Routine) - Pending Review Note Date & Type Note Facility Reason for referral (narrati ve) Specialty Diagnoses / Procedures Referred By Contmarsha t Referred To Contact [facility] Diagnoses Encounter for screening mammogram for breast cancer Procedures EDEN SCREENING SCREENING MAMMOGRAPHY BI 2-VIEW BREAST INC Melecio Rosen APRN.[facility] [address] [place] [address] [facility] [address] [place] [address] Referral ID Status Reason Start Date Expiration Date Visits Requested Visits Authorized [id number] Pending Review Auto-Generat ed Referral 12/20/2021 01/19/2023 1 1 [facility] Summary Purpose Family History No Family History Records FoundNo Family History Records Found Advance Directives No Advanced Directives Records FoundNo Advanced Directives Records Found Additional Source Comments Source Comments (unrecognize d section and content) In the event this informatio n is protected by the Federal Confidentiality of Alcohol and Drug Abuse Patient Records regulations: The Federal rules restrict any use of the information to criminally investigate or prosecute any alcohol or drug abuse patient.[facility] the event this information is protected by the Federal Confidentiality of Alcohol and Drug Abuse Patient Records regulations: The Federal rules restrict any use of the information to criminally investigate or prosecute any alcohol or drug abuse patient.[facility] Care Teams (unrecognized sec tion and content) Basic Acoustic Analyst Relationship Specialty Start Date End Date Melecio Felipe APRN.[facility] [address] [place], [place] [id number] PCP - General Family Practice 03/22/20 Basic Acoustic Analyst Relationship Specialty Start Date End Date Melecio Felipe APRN.CNP, DNP [address] [place] [address] PCP - General Family Medicine 03/22/20 INFORMATION SOURCE (unrecogn ized section and content) DATE CREATED AUTHOR 11/08/2023 [facility] DATE CREATED AUTHOR AUTHOR'S ORGANIZ ATION 09/20/2024 [facility] Reason for Visit (unrecogniz ed section and content) Reason Comments Asthma Asthma flare-up x 8 days FOR RECORDS PERTAINING TO PATIENTS WHO ARE OR HAVE BEEN ENROLLED IN A CHEMICAL DEPENDENCY/SUBSTANCEABUSE PROGRAM, SOME INFORMATION MAY BE OMITTED. This clinical summary was aggregated from multiple sources. Caution should be exercised in using it in the provision of clinical care. This summary normalizes information from multiple sources, and as a consequence, information in this document may materially change the coding, format and clinical context of patient data. In addition, data may be omitted in some cases. CLINICAL DECISIONS SHOULD BE BASED ON THE PRIMARY CLINICAL RECORDS. [employer] provides no warranty or guarantee of the accuracy or completeness of information in this document.
[2025-06-20 11:53] VITALS: BP 126/74; PULSE 71; RESP 16; TEMP 36.6; O2SAT 95
== END 2025-06-20 12:03 | disposition home or self-care (01) ==
PROVIDERS: Emergency Provider Emergency Medicine; PCP Nurse Practitioner Family; Visit Provider Emergency Medicine
DX: R07.89 Other chest pain (principal); Z90.49 Acquired absence of other specified parts of digestive tract
CPT/HCPCS: 71275; 80053; 85025; 96374; 99283; Q9967; A4216